=== PATIENT | female | born 1985 | race Caucasian/White ===

== ENCOUNTER 2018-02-14 18:26 | Emergency (ER) | payer MEDICAID ==
[~2018-02-14] VITALS: Ht 167.6 cm; Wt 82.6 kg
[~2018-02-14 18:26] MED LIST: ALBU0.0912 IH; LEVA0.6318 INH
[2018-02-14 18:45] VITALS: BP 135/77
--- NOTE | 2018-02-14 18:49 | NUR ---
PT AMBULATED TO [facility]
--- NOTE | 2018-02-14 18:50 | NUR ---
32/F BIB SELF C.O URINARY FREQUENCY, PAINFUL URINATION AT THE END OF THE STREAM X 2 WEEKS HX ASTHMA, ECZEMA.DENIES V/D; SKIN IS PINK/WARM/DRY; AAOX4 WITH EVEN AND STEADY GAIT; LUNGS CLEAR BL; PT DENIES ANY FEVER, CP, SOB, OR COUGH AT THIS TIME; PATIENT STATES PAIN OF 7/10 AT THIS TIME.
--- NOTE | 2018-02-14 19:21 | NUR ---
Pt report given to KELLY NAPOLES . Transfer of care at this time.
[2018-02-14] MEDS ORDERED: NITROFURANTOIN 100 MG CAP PO ONE (19:40)
[2018-02-14] MEDS ORDERED: PHENAZOPYRIDINE 100 MG TAB PO ONE (19:40)
[2018-02-14 19:59] VITALS: BP 120/70
--- NOTE | 2018-02-14 20:00 | NUR ---
Patient discharged with v/s stable. Written and verbal after care instructions given and explained. Patient alert, oriented and verbalized understanding of instructions. Ambulatory with steady gait. All questions addressed prior to discharge. ID band removed. Patient advised to follow up with PMD. Rx of PYRIDIUM 200 MG, MACROBID 100 MG given. Patient educated on indication of medication including possible reaction and side effects. Opportunity to ask questions provided and answered.
== END 2018-02-14 20:00 | disposition home or self-care (01) ==
LOC: MED 18:26
DX: N39.0 Urinary tract infection, site not specified (principal); J45.909 Unspecified asthma, uncomplicated
CPT/HCPCS: 81002; 81025; 99283

== ENCOUNTER 2019-04-04 14:29 | Emergency (ER) | payer OTHER ==
[~2019-04-04] VITALS: Ht 165.1 cm; Wt 83.9 kg
[2019-04-04 14:36] VITALS: BP 105/68
--- NOTE | 2019-04-04 14:42 | NUR ---
PATIENT AMBULATED TO BED 12
--- NOTE | 2019-04-04 14:44 | NUR ---
PT AMB TO RESTROOM FOR URINE SAMPLE
--- NOTE | 2019-04-04 14:47 | NUR ---
33 Y FEMALE BIB FRIEND C/O RIGHT LOWER ABDOMINAL PAIN & VAGINAL BLEEDING X 5 DAYS. +N/V. DENIES DYSURIA. DENIES FLANK PAIN. ABDOMEN SOFT AND ROUND, TENDER TO TOUCH. BOWEL SOUNDS ACTIVE IN ALL 4 QUADRANTS. DENIES ITCHING. PT TACHY AT 103. PT ALERT AND ORIENTED. BED IS DOWN, LOCKED, BED RAIL X 1, ERMD TO SEE PT. MED HX:ASTHMA
--- NOTE | 2019-04-04 14:54 | NUR ---
DR ANAND AT BEDSIDE TO SEE PT
[2019-04-04] MEDS ORDERED: KETOROLAC 30 MG/ML VIAL IVP ONE (15:00)
[2019-04-04] MEDS ORDERED: NACL 0.9% 1,000 ML IV ONE (15:00)
--- NOTE | 2019-04-04 15:02 | NUR ---
PT STATES SHE DOES NOT WANT ANY MEDICATIONS. STATES SHE WANTS TO GO HOME WITH HER DISCHARGE PAPERS.
--- NOTE | 2019-04-04 15:14 | NUR ---
Patient discharged with v/s stable. Written and verbal after care instructions given and explained. Patient alert, oriented and verbalized understanding of instructions. Ambulatory with steady gait. All questions addressed prior to discharge. ID band removed. Patient advised to follow up with PMD. Rx of PROVERA, CIPRO, MOTRIN given. Patient educated on indication of medication including possible reaction and side effects. Opportunity to ask questions provided and answered. PT PROVIDED WITH EXCUSE FROM WORK
--- NOTE | 2019-04-04 15:15 | NUR ---
PT DID NOT WISH TO WAIT FOR VITALS TO BE TAKEN WITH DISCHARGE
== END 2019-04-04 15:14 | disposition home or self-care (01) ==
LOC: MED 14:29
DX: N93.9 Abnormal uterine and vaginal bleeding, unspecified (principal); N39.0 Urinary tract infection, site not specified; J45.909 Unspecified asthma, uncomplicated; Z79.899 Other long term (current) drug therapy
CPT/HCPCS: 81002; 81025; 99283

== ENCOUNTER 2019-12-06 10:42 | Emergency (ER) | payer MEDICAID, OTHER ==
[~2019-12-06] VITALS: Ht 167.6 cm; Wt 86.2 kg
[2019-12-06 11:07] VITALS: BP 112/81
--- NOTE | 2019-12-06 11:08 | NUR ---
PT WALKED BACK TO LOBBY TO WAIT FOR BED IN STABLE VITALS.
--- NOTE | 2019-12-06 11:27 | NUR ---
PT AMBULATED TO ED BED 10
--- NOTE | 2019-12-06 11:40 | NUR ---
BIB SELF C/O RIGHT MOLAR PAIN RADIATING TO RIGHT EAR AND OCCIPITAL LOBE X2 DAY S/P BROKEN TOOTH SINCE LAST MONTH. PATIENT HAS AN UNTREATED BROKEN RIGHT UPPER MOLAR THAT BEGAN GIVING HER PAIN YESTERDAY WHEN EATING TRAIL MIX. SHE REPORTS A FOUL TASTE AND ODOR AND STATES "IT FEELS LIKE AN ABCESS POPPED YESTERDAY". NO DRAINAGE/BLEEDING NOTED AROUND MOLAR. NO FOUL SMELL ASSESSED. VISION IS UNAFFECTED. FACIAL MOVEMENT IS UNAFFECTED. PATIENT RATES PAIN 10/10, HAS TRIED TYLENOL AND MOTRIN TO RELIEVE PAIN BUT NO RELIEF. PMH: ASTHMA NKA
[2019-12-06] MEDS ORDERED: KETOROLAC 30 MG/ML VIAL IM ONE (13:00)
--- NOTE | 2019-12-06 13:34 | NUR ---
ENTERED PTS ROOM TO PROVIDE PATIENT WITH DISCHARGE PAPER WORK AND PRESCRIPTIONS, AND PT WAS NOT THERE. CHECKED LOBBY AND OUTSIDE OF ER. LEFT PATIENT A VOICEMAIL REGARDING PAPERWORK.
[2019-12-06 13:35] VITALS: BP 135/67
== END 2019-12-06 13:36 | disposition home or self-care (01) ==
LOC: MED 10:42
DX: K02.9 Dental caries, unspecified (principal); J45.909 Unspecified asthma, uncomplicated; Z79.899 Other long term (current) drug therapy
CPT/HCPCS: 96372; 99283; J1885

== ENCOUNTER 2019-12-29 22:45 | Emergency (ER) | payer MEDICAID ==
[~2019-12-29] VITALS: Ht 165.1 cm; Wt 86.2 kg
[2019-12-29 22:50] VITALS: BP 118/90
--- NOTE | 2019-12-29 22:50 | NUR ---
TO BED # 06 AMBULATORY
--- NOTE | 2019-12-29 23:03 | NUR ---
34 Y/O FEMALE C/O ASTHMA EXACERBATION STARTING THIS MORNING. PT STATES SHE RAN OUT OF ALBUTEROL INHALER YESTERDAY. AUDIBLE WHEEZING HEARD UPON EXPIRATION. RR EVEN AND SHALLOW. DRY COUGH NOTED. DENIES CHEST PAIN. PT PLACED ON MONITOR. DR RODRIGUEZ MADE AWARE OF PT STATUS. VSS MEDHX: ASTHMA ALLERGIES: NKA
--- NOTE | 2019-12-29 23:05 | NUR ---
Dr. Mendoza examining patient.
[2019-12-29] MEDS ORDERED: ALBUTEROL SULFATE/IPRATROPIU 3 ML SOL IH ONE (23:10)
[2019-12-29] MEDS ORDERED: DEXAMETHASONE 10 MG/ML VIAL IM ONE (23:10)
[2019-12-29] MEDS ORDERED: ALBUTEROL 0.083% 2.5 MG/3 ML NEBU INH ONE (23:10)
--- NOTE | 2019-12-29 23:16 | NUR ---
PT AMBULATED TO RESTROOM WITH STEADY GAIT.
--- NOTE | 2019-12-29 23:29 | NUR ---
RESPIRATORY AT BEDSIDE FOR INTERVENTION
[2019-12-29 23:41] LABS: BARBITURATE, URINE NEG. ng/ml (NEG <=200); BENZODIAZEPINE, URINE NEG. ng/mL (NEG <=200); CANNABINOID, URINE NEG. ng/mL (NEG <=50); COCAINE, URINE NEG. ng/mL (NEG <=300); OPIATE, URINE NEG. ng/mL (NEG <=2000); PHENCYCLIDINE SCREEN,URINE NEG. ng/mL (NEG <=25)
--- NOTE | 2019-12-29 23:43 | NUR ---
STATES EASIER WORK OF BREATHING S/P BREATHING TREATMENT.
[2019-12-30 00:27] VITALS: BP 118/90
--- NOTE | 2019-12-30 00:29 | NUR ---
Patient discharged with v/s stable. Written and verbal after care instructions given and explained. Patient alert, oriented and verbalized understanding of instructions. Ambulatory with steady gait. All questions addressed prior to discharge. ID band removed. Patient advised to follow up with PMD. Rx of ALBUTEROL, PREDNISONE given. Patient educated on indication of medication including possible reaction and side effects. Opportunity to ask questions provided and answered.
== END 2019-12-30 00:29 | disposition home or self-care (01) ==
LOC: MED 22:45
DX: J45.901 Unspecified asthma with (acute) exacerbation (principal); Z79.899 Other long term (current) drug therapy
CPT/HCPCS: 80305; 81025; 94640; 96372; 99283; J1100; J7613; J7620

== ENCOUNTER 2021-05-31 20:25 | Observation (INO) | payer MEDICAID ==
[~2021-05-31] VITALS: Ht 167.6 cm; Wt 97.1 kg
[2021-05-31] MEDS ORDERED: NACL 0.9% 1,000 ML IV SCH (21:10)
[2021-05-31] MEDS ORDERED: cefTRIAXone 1,000 MG VIAL ONE (21:21)
[2021-05-31 21:55] VITALS: BP 115/67
== END 2021-05-31 22:30 | disposition home or self-care (01) ==
LOC: MLD 20:25
PROVIDERS: ADMIT Obstetrics & Gynecology; ATTEND Obstetrics & Gynecology
DX: O26.892 Other specified pregnancy related conditions, second trimester (principal); R10.9 Unspecified abdominal pain; Z3A.22 22 weeks gestation of pregnancy
CPT/HCPCS: 59025; 81000; 96365; G0378; J0696

== ENCOUNTER 2021-10-19 21:14 | Emergency (ER) | payer MEDICAID, OTHER ==
[~2021-10-19] VITALS: Ht 165.1 cm; Wt 83.9 kg
[2021-10-19 21:15] VITALS: BP 159/76
--- NOTE | 2021-10-19 21:15 | NUR ---
TO BED AMBULATORY
--- NOTE | 2021-10-19 21:26 | NUR ---
36 YO/F BIB SELF W C/O OF ASTHMA ATTACK, REPORT SOB BEGAN YESTERDAY BUT WORSENED TODAY AFTER SHE RAN OUT OF HER INHALOR. PT PRESENTS TACHY AT 100HR, W LABORED BREATHING, DEEP , WHEEZES AUDIBLE, TACHYPNEIC O2 SAT 100% ON ROOM AIR. PT DENIES ANY FEVERS, COUGH, CONGESTION, N/V/D OR OTHER SYMPTOMS. PT HOSPITALIZED FOR ATHMA ATTCK LAST 5 YEARS AGO. PT REPORTS SHE DOES NOT WANT TO SPEAK MUCH RIGHT NOW D/T DIFFICULTY BREATHING. DENIES ANY PAIN. PT SITTING UP IN BED LOCKED IN LOWEST POSITION. CONNECTED TO MONITOR. ERMD AND RT MADE AWARE OF PT STATUS. PMH: ASTHMA NKA
--- NOTE | 2021-10-19 21:34 | NUR ---
RT AT BEDSIDE FOR PT BREATHING TRT.
[2021-10-19] MEDS ORDERED: ALBUTEROL 0.083% 2.5 MG/3 ML NEBU INH ONE (21:35)
[2021-10-19] MEDS ORDERED: predniSONE 20 MG TAB PO ONE (21:35)
[2021-10-19] MEDS ORDERED: IPRATROPIUM 0.02% 0.5 MG/2.5 ML NEBU INH ONE (21:35)
[2021-10-19] MEDS ORDERED: ALBU0.0912 IH (22:34)
[2021-10-19] MEDS ORDERED: PRED20TA5 PO (22:34)
--- NOTE | 2021-10-19 22:57 | NUR ---
PT REPORTS FEELING BETTER, DENIES SOB, DIFF BREATHING. LUNG SOUNDS CLEAR THROUGH OUT. VSS.
[2021-10-19 23:00] VITALS: BP 119/76
--- NOTE | 2021-10-19 23:00 | NUR ---
Patient discharged with v/s stable. Written and verbal after care instructions given and explained. Patient alert, oriented and verbalized understanding of instructions. Ambulatory with steady gait. All questions addressed prior to discharge. ID band removed. Patient advised to follow up with PMD. Rx of ALBUTEROL SULFATE, PREDNISONE given. Patient educated on indication of medication including possible reaction and side effects. Opportunity to ask questions provided and answered.
== END 2021-10-19 23:00 | disposition home or self-care (01) ==
LOC: MED 21:14
DX: J45.901 Unspecified asthma with (acute) exacerbation (principal)
CPT/HCPCS: 94640; 99283; J7512; J7613; J7644

== ENCOUNTER 2023-01-05 20:14 | Emergency (ER) | payer OTHER ==
[~2023-01-05] VITALS: Ht 165.1 cm; Wt 78.9 kg
[~2023-01-05 20:14] MED LIST changes: +PRED20TA5 PO
--- NOTE | 2023-01-05 21:00 | NUR ---
Note danielchriss in EDM - 01/05/23 at 2201 by [id number] Received patient to ER w/ c/o pain to left side of throat, pain and difficulty swallowing. Denies any stridor but admits to "some drooling". Introduced self to patient, positioned for comfort. Bed to low position sr up, continue to monitor.
[2023-01-05 21:27] VITALS: BP 129/79
--- NOTE | 2023-01-05 21:33 | NUR ---
Pt to rm 1, pt on monitor. VSS
[2023-01-05] MEDS ORDERED: KETOROLAC 30 MG/ML VIAL IVP ONE (21:35)
[2023-01-05] MEDS ORDERED: NACL 0.9% 1,000 ML IV ONE (21:35)
--- NOTE | 2023-01-05 21:50 | NUR ---
Received patient to ER w/ c/o pain to left side of throat, pain and difficulty swallowing. Denies any stridor but admits to "some drooling". Introduced self to patient, positioned for comfort. Bed to low position sr up, continue to monitor.
--- NOTE | 2023-01-05 21:55 | NUR ---
patient medicated as ordered w/ toradol and 0.9%NS bolus to RAC, iv site patent and intact. Bed to low position sr up. Will observe for any adverse reaction. continue to monitor.
--- NOTE | 2023-01-05 22:46 | NUR ---
no adverse reaction noted to medication, toradol ivp. Iv site patent and intact. pain decreased to 5/10. patient resting comfortably at this time in no acute distress. bed to low position sr up, continue to monitor.
--- NOTE | 2023-01-05 22:59 | NUR ---
MD Mendoza at bedside
[2023-01-05] MEDS ORDERED: DEXAMETHASONE 10 MG/ML VIAL PO ONE (23:05)
[2023-01-05] MEDS ORDERED: AMPICILLIN/SULBACTAM 3 GM in NACL 0.9% 100 ML IV ONE (23:05)
[2023-01-05] MEDS ORDERED: HYDROcodone/APAP 5/325 MG 1 TAB TAB PO ONE (23:05)
[2023-01-05] MEDS ORDERED: AMPICILLIN/SULBACTAM 3 GM VIAL ONE (23:20)
[2023-01-05] MEDS ORDERED: WATER STERILE 10 ML MC ONE (23:21)
[2023-01-05] MEDS ORDERED: ACET-8905 PO (23:40)
[2023-01-05] MEDS ORDERED: NAPR-54 PO (23:40)
[2023-01-05] MEDS ORDERED: AMOX1TAB8 PO (23:40)
--- NOTE | 2023-01-05 23:41 | NUR ---
patient medicated as ordered w/ decadron, norco, and unasyn 3.0gms ivpb. Iv site patent and intact. Will observe patient for any adverse reaction. bed to low position sr up, continue to monitor.
--- NOTE | 2023-01-06 01:02 | NUR ---
Patient discharged with v/s stable. Written and verbal after care instructions given and explained. Patient alert, oriented and verbalized understanding of instructions. Ambulatory with steady gait. All questions addressed prior to discharge. ID band removed. Patient advised to follow up with PMD. Rx of naproxen, norco, augmentin given. Patient educated on indication of medication including possible reaction and side effects. Opportunity to ask questions provided and answered.
[2023-01-06 01:04] VITALS: BP 102/69
== END 2023-01-06 01:02 | disposition home or self-care (01) ==
LOC: MED 20:14
DX: J02.9 Acute pharyngitis, unspecified (principal); J45.909 Unspecified asthma, uncomplicated
CPT/HCPCS: 81025; 96361; 96365; 96375; 99284; J0295; J1100; J1885; J7030; 96374; 99283

== ENCOUNTER 2024-03-17 19:26 | Emergency (ER) | payer OTHER ==
[~2024-03-17] VITALS: Ht 165.1 cm; Wt 86.2 kg
[~2024-03-17 19:26] MED LIST changes: +ACET-8905 PO; +AMOX1TAB8 PO; -LEVA0.6318 INH; +LEVA0.6327 INH; +NAPR-337 PO
[2024-03-17 19:31] VITALS: BP 118/82; PULSE 104; RESP 22; TEMP 97.8; O2SAT 98
[2024-03-17] MEDS: DEXAMETHASONE 10 MG/ML VIAL IM ONE (19:44)
[2024-03-17 20:11] VITALS: PULSE 89; PULSE 98; RESP 20; RESP 22; O2SAT 100; O2SAT 98
[2024-03-17] MEDS: ALBUTEROL SULFATE/IPRATROPIU 3 ML SOL IH ONE ×2 (20:24→20:40)
[2024-03-17] MEDS ORDERED: PRON INH (20:40)
[2024-03-17] MEDS ORDERED: ALBU0.0912 IH (20:40)
[2024-03-17] MEDS ORDERED: PRED20TA5 PO (20:40)
[2024-03-17 20:41] VITALS: PULSE 100; RESP 24; O2SAT 100
[2024-03-17 20:54] VITALS: BP 118/82; PULSE 100; RESP 24; TEMP 97.8; O2SAT 100
== END 2024-03-17 20:54 | disposition home or self-care (01) ==
LOC: MED 19:26
DX: J45.901 Unspecified asthma with (acute) exacerbation (principal); Z79.899 Other long term (current) drug therapy
CPT/HCPCS: 71045; 94640; 96372; 99285; J1100

== ENCOUNTER 2024-08-31 16:34 | Emergency (ER) | payer OTHER ==
[~2024-08-31] VITALS: Ht 165.1 cm; Wt 86.6 kg
[~2024-08-31 16:34] MED LIST changes: +PRON INH
[2024-08-31 16:49] VITALS: BP 112/70; PULSE 95; RESP 22; TEMP 98.1; O2SAT 99
[2024-08-31 17:05] VITALS: PULSE 94; RESP 22; O2SAT 100
[2024-08-31 17:06] VITALS: PULSE 94; RESP 20; O2SAT 100
[2024-08-31] MEDS: ALBUTEROL SULFATE/IPRATROPIU 3 ML SOL IH ONE (17:13)
== END 2024-08-31 18:00 | disposition left against medical advice (07) ==
LOC: MED 16:34
DX: J45.901 Unspecified asthma with (acute) exacerbation (principal); Z53.21 Procedure and treatment not carried out due to patient leaving prior to being seen by health care provider
CPT/HCPCS: 94640